=== PATIENT | female | born 1940 | race Caucasian/White ===

== ENCOUNTER 2017-11-01 08:19 | Day surgery (SDC) | payer MEDICARE, BC ==
[~2017-11-01] VITALS: Ht 157.5 cm; Wt 65.5 kg
[~2017-11-01 08:19] MED LIST: ASPI-1265 PO; CA C-1 PO; CHOL10002 PO; FURO20TA4 PO; LACT10SO PO; LEVO125T8 PO; MULT-955 PO; OMEP40CA37 PO; RIFA550T PO; SPIR25TA3 PO; URSO300C2 PO; ZIN220C; iron PO
[2017-11-01 08:42] VITALS: BP 121/64
[2017-11-01 09:00] VITALS: BP 111/54
[2017-11-01 09:15] VITALS: BP 115/52
[2017-11-01 09:25] VITALS: BP 114/62
== END 2017-11-01 09:32 | disposition home or self-care (01) ==
LOC: SSTAY O 08:19
PROVIDERS: ATTEND Radiology Diagnostic Radiology
DX: J90 Pleural effusion, not elsewhere classified (principal); I25.10 Atherosclerotic heart disease of native coronary artery without angina pectoris; I50.9 Heart failure, unspecified; I73.00 Raynaud's syndrome without gangrene; M19.90 Unspecified osteoarthritis, unspecified site; E03.9 Hypothyroidism, unspecified; I34.0 Nonrheumatic mitral (valve) insufficiency; Z79.82 Long term (current) use of aspirin; I13.0 Hypertensive heart and chronic kidney disease with heart failure and stage 1 through stage 4 chronic kidney disease, or unspecified chronic kidney disease; N18.9 Chronic kidney disease, unspecified; K21.9 Gastro-esophageal reflux disease without esophagitis; Z87.01 Personal history of pneumonia (recurrent); Z90.49 Acquired absence of other specified parts of digestive tract; Z99.81 Dependence on supplemental oxygen; Z85.828 Personal history of other malignant neoplasm of skin
CPT/HCPCS: 32555; 71045

== ENCOUNTER 2017-11-30 10:52 | Inpatient (IN) | payer MEDICARE, BC ==
[~2017-11-30] VITALS: Ht 157.5 cm; Wt 72.5 kg
[2017-11-30 12:18] LABS: BASOPHILS % (AUTO) 0.3 % (0-1); EOSINOPHILS # (AUTO) 0.3 X10'3 (0-0.9); EOSINOPHILS % (AUTO) 4.4 % (0-6); HEMATOCRIT 33.7 % (35.0-45.0); HEMOGLOBIN 11.5 g/dl (12.0-16.0); LYMPHOCYTES # (AUTO) 0.9 X10'3 (1.1-4.8); LYMPHOCYTES % (AUTO) 13.9 % (21-51); MEAN CORPUSCULAR HGB CONC 34.3 % (33.0-36.5); MEAN CORPUSCULAR VOLUME 96.4 FL (78-98); MEAN PLATELET VOLUME 6.4 FL (7.4-10.4); MONOCYTES # (AUTO) 0.8 X10'3 (0-0.9); MONOCYTES % (AUTO) 11.8 % (2-12); NEUTROPHILS # (AUTO) 4.6 X10'3 (1.8-7.7); NEUTROPHILS % (AUTO) 69.6 % (42-75); PLATELET COUNT 147 X10'3 (140-440); RED BLOOD COUNT 3.49 X10'6 (4.20-5.60); RED CELL DISTRIBUTION WIDTH 19.4 % (11.5-14.5); WHITE BLOOD COUNT 6.6 X10'3 (4.5-11.0)
[2017-11-30] MEDS ORDERED: furosemide 40mg/4ml inj IV ONE (12:25)
[2017-11-30 12:28] LABS: INR 1.2 INR; PARTIAL THROMBOPLASTIN TIME 31 SECONDS (22-32); PROTHROMBIN TIME 12.2 SECONDS (9.0-12.0)
[2017-11-30 12:45] LABS: ALANINE AMINOTRANSFERASE 21 U/L (12-78); ALBUMIN 1.3 G/DL (3.4-5.0); ALBUMIN/GLOBULIN RATIO 0.3 (1.1-1.5); ANION GAP 6 (8-16); ASPARTATE AMINO TRANSFERASE 39 U/L (10-37); BILIRUBIN,TOTAL 2.7 MG/DL (0.1-1.0); BLOOD UREA NITROGEN 11 MG/DL (7-18); BUN/CREATININE RATIO 13.6 (6.6-38.0); CALCIUM 8.1 MG/DL (8.5-10.1); CHLORIDE 103 MMOL/L (99-107); CREATININE 0.81 MG/DL (0.40-0.90); POTASSIUM 3.9 MMOL/L (3.5-5.1); SODIUM 138 MMOL/L (135-145); TOTAL CARBON DIOXIDE 29.5 MMOL/L (24-32); TOTAL PROTEIN 5.4 G/DL (6.4-8.2); eGFR 68 ML/MIN
[2017-11-30 12:46] LABS: ALKALINE PHOSPHATASE 138 IU/L (46-116)
[2017-11-30 12:47] LABS: GLUCOSE 94 MG/DL (70-104)
[2017-11-30 12:53] LABS: MAGNESIUM 1.8 MG/DL (1.5-2.4)
[2017-11-30] MEDS ORDERED: RIFA550T PO (15:02)
[2017-11-30] MEDS ORDERED: OMEP40CA37 PO (15:02)
[2017-11-30] MEDS ORDERED: FURO-150 PO (15:02)
[2017-11-30] MEDS ORDERED: URSO300C2 PO (15:02)
[2017-11-30] MEDS ORDERED: potassium Cl 20 mEq SR tablet PO PRN (15:20)
[2017-11-30] MEDS ORDERED: magnesium hydroxide 30ml (MOM) UD suspension PO PRN (15:20)
[2017-11-30] MEDS ORDERED: magnesium Cl slow-release 64mg tablet PO PRN (15:20)
[2017-11-30] MEDS ORDERED: mag hydrox/Alum hydrox/simeth 30ml oral suspension PO PRN (15:20)
[2017-11-30] MEDS ORDERED: potassium Cl 40MEQ/NS 500ml 500 ML IV PRN ×2 (15:20)
[2017-11-30] MEDS ORDERED: magnesium 2GM in 50ml NS 50 ML IV PRN (15:20)
[2017-11-30] MEDS ORDERED: magnesium 4gm in 100ml NS 100 ML IV PRN (15:20)
[2017-11-30] MEDS ORDERED: acetaminophen 325mg tablet PO PRN (15:20)
[2017-11-30] MEDS ORDERED: ondansetron/PF 4mg/2ml inj IV PRN ×2 (15:20)
[2017-11-30] MEDS ORDERED: non-formulary drug (Omeprazole (Prilosec) 1 CAP) PO PRN (15:30)
[2017-11-30 18:00] VITALS: BP 109/53
[2017-11-30] MEDS ORDERED: furosemide 10 MG/1 ML 10ml inj IV ONE (20:00)
[2017-11-30] MEDS ORDERED: lactulose 20gm/30ml cup PO ONE (20:00)
[2017-11-30] MEDS: heparin, porcine 5000 units/ml vial SQ SCH (20:17)
[2017-11-30 20:52] LABS: CLARITY,URINE CLEAR (Clear); COLOR,URINE YELLOW (Yellow); GLUCOSE, URINE NEGATIVE (Neg); KETONES,URINE NEGATIVE (Neg); LEUKOCYTE ESTERASE ,URINE NEGATIVE (Neg); NITRITES, URINE NEGATIVE (Neg); OCCULT BLOOD,URINE NEGATIVE (Neg); PH,URINE 5.5 (4.8-8.0); PROTEIN,URINE NEGATIVE (Neg); UA COLLECTION TYPE CLN CATCH MIDSTREAM; UROBILINOGEN,URINE 0.2 E.U/dL (0.2-1.0)
[2017-11-30] MEDS: Ursodiol 300mg capsule PO SCH (21:27)
[2017-11-30] MEDS: rifaximin 550mg tablet PO SCH (22:41)
[2017-12-01 00:52] VITALS: BP 121/53
[2017-12-01 05:19] LABS: BASOPHILS % (AUTO) 0.6 % (0-1); EOSINOPHILS # (AUTO) 0.3 X10'3 (0-0.9); EOSINOPHILS % (AUTO) 6.1 % (0-6); HEMATOCRIT 28.4 % (35.0-45.0); HEMOGLOBIN 9.9 g/dl (12.0-16.0); LYMPHOCYTES % (AUTO) 18.6 % (21-51); MEAN CORPUSCULAR HGB CONC 34.8 % (33.0-36.5); MEAN CORPUSCULAR VOLUME 94.8 FL (78-98); MEAN PLATELET VOLUME 6.2 FL (7.4-10.4); MONOCYTES # (AUTO) 0.7 X10'3 (0-0.9); MONOCYTES % (AUTO) 12.7 % (2-12); NEUTROPHILS # (AUTO) 3.2 X10'3 (1.8-7.7); PLATELET COUNT 135 X10'3 (140-440); RED BLOOD COUNT 2.99 X10'6 (4.20-5.60); RED CELL DISTRIBUTION WIDTH 18.8 % (11.5-14.5); WHITE BLOOD COUNT 5.2 X10'3 (4.5-11.0)
[2017-12-01 05:59] LABS: ALBUMIN 1.1 G/DL (3.4-5.0); ANION GAP 7 (8-16); BLOOD UREA NITROGEN 13 MG/DL (7-18); BUN/CREATININE RATIO 18.1 (6.6-38.0); CALCIUM 7.3 MG/DL (8.5-10.1); CHLORIDE 104 MMOL/L (99-107); CREATININE 0.72 MG/DL (0.40-0.90); GLUCOSE 76 MG/DL (70-104); MAGNESIUM 1.7 MG/DL (1.5-2.4); PHOSPHORUS 3.2 MG/DL (2.3-4.5); SODIUM 140 MMOL/L (135-145); TOTAL CARBON DIOXIDE 28.8 MMOL/L (24-32); eGFR 78 ML/MIN
[2017-12-01 06:06] LABS: POTASSIUM 2.7 MMOL/L (3.5-5.1)
[2017-12-01 07:33] VITALS: BP 95/50
[2017-12-01] MEDS ORDERED: non-formulary drug (Multivitamin (Daily Value) 1 TAB) PO SCH (08:00)
[2017-12-01] MEDS: K and/or MAG REPLACEMENT MC SCH (08:00)
[2017-12-01] MEDS ORDERED: non-formulary drug (Cholecalciferol (Vitamin D3) (Vitamin D3) 2 TAB) PO SCH (08:00)
[2017-12-01] MEDS: levoTHYROXINE 125mcg tablet PO SCH (10:04)
[2017-12-01] MEDS: pantoprazole 40mg Tablet.DR PO SCH (10:05)
[2017-12-01] MEDS: Ursodiol 300mg capsule PO SCH ×3 (10:05→17:44)
[2017-12-01] MEDS: rifaximin 550mg tablet PO SCH ×2 (10:06→20:32)
[2017-12-01] MEDS: spironolactone 25 MG tablet PO SCH (10:06)
[2017-12-01] MEDS: heparin, porcine 5000 units/ml vial SQ SCH ×2 (10:07→20:33)
[2017-12-01] MEDS: potassium Cl 20 mEq SR tablet PO PRN ×3 (10:08→20:33)
[2017-12-01] MEDS: multivitamins, therapeutics tablet PO SCH (10:17)
[2017-12-01] MEDS: vitamin D (cholecalciferol) 1,000 unit tablet PO SCH (10:17)
[2017-12-01 11:00] VITALS: BP 110/54
[2017-12-01 11:30] VITALS: BP 107/54
[2017-12-01 11:34] VITALS: BP 96/47
[2017-12-01 18:00] VITALS: BP 98/50
[2017-12-01] MEDS: lactulose 20gm/30ml cup PO SCH (20:32)
[2017-12-01] MEDS: morphine 2 MG/ML inj. syringe IV PRN (23:41)
[2017-12-02] VITALS: BP 123/59
[2017-12-02] MEDS: K and/or MAG REPLACEMENT MC SCH (08:00)
[2017-12-02 08:07] VITALS: BP 100/50
[2017-12-02 08:09] LABS: BASOPHILS % (AUTO) 0.6 % (0-1); EOSINOPHILS # (AUTO) 0.5 X10'3 (0-0.9); EOSINOPHILS % (AUTO) 8.1 % (0-6); HEMATOCRIT 31.8 % (35.0-45.0); HEMOGLOBIN 10.8 g/dl (12.0-16.0); LYMPHOCYTES # (AUTO) 1.6 X10'3 (1.1-4.8); LYMPHOCYTES % (AUTO) 25.1 % (21-51); MEAN CORPUSCULAR HGB CONC 34.1 % (33.0-36.5); MEAN CORPUSCULAR VOLUME 96.8 FL (78-98); MEAN PLATELET VOLUME 6.3 FL (7.4-10.4); MONOCYTES # (AUTO) 0.8 X10'3 (0-0.9); MONOCYTES % (AUTO) 13.5 % (2-12); NEUTROPHILS # (AUTO) 3.3 X10'3 (1.8-7.7); NEUTROPHILS % (AUTO) 52.7 % (42-75); PLATELET COUNT 144 X10'3 (140-440); RED BLOOD COUNT 3.29 X10'6 (4.20-5.60); RED CELL DISTRIBUTION WIDTH 18.7 % (11.5-14.5); WHITE BLOOD COUNT 6.2 X10'3 (4.5-11.0)
[2017-12-02 08:29] LABS: ALBUMIN 1.1 G/DL (3.4-5.0); ANION GAP 8 (8-16); BLOOD UREA NITROGEN 13 MG/DL (7-18); BUN/CREATININE RATIO 17.1 (6.6-38.0); CALCIUM 7.5 MG/DL (8.5-10.1); CHLORIDE 105 MMOL/L (99-107); CREATININE 0.76 MG/DL (0.40-0.90); GLUCOSE 72 MG/DL (70-104); MAGNESIUM 1.7 MG/DL (1.5-2.4); PHOSPHORUS 2.7 MG/DL (2.3-4.5); POTASSIUM 4.2 MMOL/L (3.5-5.1); SODIUM 138 MMOL/L (135-145); TOTAL CARBON DIOXIDE 25.5 MMOL/L (24-32); eGFR 74 ML/MIN
[2017-12-02] MEDS: levoTHYROXINE 125mcg tablet PO SCH (10:00)
[2017-12-02] MEDS: Ursodiol 300mg capsule PO SCH ×3 (10:00→18:34)
[2017-12-02] MEDS: pantoprazole 40mg Tablet.DR PO SCH (10:00)
[2017-12-02] MEDS: spironolactone 25 MG tablet PO SCH (10:01)
[2017-12-02] MEDS: lactulose 20gm/30ml cup PO SCH ×2 (10:01→19:18)
[2017-12-02] MEDS: rifaximin 550mg tablet PO SCH ×2 (10:02→19:18)
[2017-12-02] MEDS: heparin, porcine 5000 units/ml vial SQ SCH ×2 (10:03→19:18)
[2017-12-02] MEDS: multivitamins, therapeutics tablet PO SCH (10:03)
[2017-12-02] MEDS: vitamin D (cholecalciferol) 1,000 unit tablet PO SCH (10:04)
[2017-12-02 11:25] VITALS: BP 105/50
[2017-12-02 18:00] VITALS: BP 98/49
[2017-12-03] VITALS: BP 110/2
[2017-12-03 05:19] LABS: BASOPHILS # (AUTO) 0.1 X10'3 (0-0.2); BASOPHILS % (AUTO) 1.2 % (0-1); EOSINOPHILS # (AUTO) 0.5 X10'3 (0-0.9); EOSINOPHILS % (AUTO) 9.6 % (0-6); HEMATOCRIT 28.7 % (35.0-45.0); LYMPHOCYTES # (AUTO) 1.3 X10'3 (1.1-4.8); LYMPHOCYTES % (AUTO) 24.7 % (21-51); MEAN CORPUSCULAR HEMOGLOBIN 33.2 PG (27.0-31.0); MEAN CORPUSCULAR HGB CONC 34.8 % (33.0-36.5); MEAN CORPUSCULAR VOLUME 95.4 FL (78-98); MEAN PLATELET VOLUME 6.2 FL (7.4-10.4); MONOCYTES # (AUTO) 0.8 X10'3 (0-0.9); MONOCYTES % (AUTO) 14.9 % (2-12); NEUTROPHILS # (AUTO) 2.5 X10'3 (1.8-7.7); NEUTROPHILS % (AUTO) 49.6 % (42-75); PLATELET COUNT 130 X10'3 (140-440); RED BLOOD COUNT 3.01 X10'6 (4.20-5.60); RED CELL DISTRIBUTION WIDTH 19.2 % (11.5-14.5); WHITE BLOOD COUNT 5.1 X10'3 (4.5-11.0)
[2017-12-03 05:33] LABS: ALBUMIN 1.1 G/DL (3.4-5.0); ANION GAP 4 (8-16); BLOOD UREA NITROGEN 12 MG/DL (7-18); BUN/CREATININE RATIO 17.1 (6.6-38.0); CALCIUM 7.6 MG/DL (8.5-10.1); CHLORIDE 105 MMOL/L (99-107); GLUCOSE 78 MG/DL (70-104); MAGNESIUM 1.7 MG/DL (1.5-2.4); PHOSPHORUS 3.1 MG/DL (2.3-4.5); POTASSIUM 4.1 MMOL/L (3.5-5.1); SODIUM 137 MMOL/L (135-145); TOTAL CARBON DIOXIDE 28.2 MMOL/L (24-32); eGFR 81 ML/MIN
[2017-12-03] MEDS: K and/or MAG REPLACEMENT MC SCH (07:13)
[2017-12-03] MEDS: levoTHYROXINE 125mcg tablet PO SCH (07:20)
[2017-12-03] MEDS: pantoprazole 40mg Tablet.DR PO SCH (07:20)
[2017-12-03] MEDS: heparin, porcine 5000 units/ml vial SQ SCH ×2 (07:20→20:21)
[2017-12-03] MEDS: vitamin D (cholecalciferol) 1,000 unit tablet PO SCH (07:20)
[2017-12-03] MEDS: lactulose 20gm/30ml cup PO SCH ×2 (07:20→20:18)
[2017-12-03] MEDS: levoFLOXACIN-Levaquin 750MG/D5 150 ML IV SCH (07:20)
[2017-12-03] MEDS: spironolactone 25 MG tablet PO SCH ×2 (07:21→20:19)
[2017-12-03] MEDS: multivitamins, therapeutics tablet PO SCH (07:21)
[2017-12-03] MEDS: Ursodiol 300mg capsule PO SCH ×3 (07:22→17:09)
[2017-12-03] MEDS: rifaximin 550mg tablet PO SCH ×2 (07:22→20:19)
[2017-12-03 08:00] VITALS: BP 100/48
[2017-12-03 11:00] VITALS: BP 97/50
[2017-12-03] MEDS ORDERED: spironolactone 25 MG tablet PO ONE (12:15)
[2017-12-03] MEDS ORDERED: lactobacillus rhamnosus 10,000 MMU CELLS/CAPSULE PO SCH (17:30)
[2017-12-03 20:00] VITALS: BP 104/51
[2017-12-03] MEDS: morphine 2 MG/ML inj. syringe IV PRN (20:27)
[2017-12-04] VITALS: BP 104/57
[2017-12-04 06:13] LABS: BASOPHILS % (AUTO) 0.7 % (0-1); EOSINOPHILS # (AUTO) 0.4 X10'3 (0-0.9); EOSINOPHILS % (AUTO) 7.7 % (0-6); HEMATOCRIT 29.4 % (35.0-45.0); HEMOGLOBIN 10.1 g/dl (12.0-16.0); LYMPHOCYTES # (AUTO) 1.4 X10'3 (1.1-4.8); LYMPHOCYTES % (AUTO) 24.1 % (21-51); MEAN CORPUSCULAR HEMOGLOBIN 32.7 PG (27.0-31.0); MEAN CORPUSCULAR HGB CONC 34.4 % (33.0-36.5); MEAN CORPUSCULAR VOLUME 95.3 FL (78-98); MEAN PLATELET VOLUME 6.4 FL (7.4-10.4); MONOCYTES # (AUTO) 0.9 X10'3 (0-0.9); MONOCYTES % (AUTO) 16.1 % (2-12); NEUTROPHILS # (AUTO) 2.9 X10'3 (1.8-7.7); NEUTROPHILS % (AUTO) 51.4 % (42-75); PLATELET COUNT 138 X10'3 (140-440); RED BLOOD COUNT 3.09 X10'6 (4.20-5.60); RED CELL DISTRIBUTION WIDTH 18.4 % (11.5-14.5); WHITE BLOOD COUNT 5.6 X10'3 (4.5-11.0)
[2017-12-04 06:17] LABS: INR 1.2 INR; PROTHROMBIN TIME 12.8 SECONDS (9.0-12.0)
[2017-12-04 06:30] LABS: ALANINE AMINOTRANSFERASE 12 U/L (12-78); ALBUMIN 1.1 G/DL (3.4-5.0); ALBUMIN/GLOBULIN RATIO 0.3 (1.1-1.5); ALKALINE PHOSPHATASE 115 IU/L (46-116); ANION GAP 4 (8-16); ASPARTATE AMINO TRANSFERASE 38 U/L (10-37); BILIRUBIN,DIRECT 1.2 MG/DL (0-0.3); BILIRUBIN,TOTAL 2.1 MG/DL (0.1-1.0); BLOOD UREA NITROGEN 12 MG/DL (7-18); BUN/CREATININE RATIO 14.5 (6.6-38.0); CHLORIDE 106 MMOL/L (99-107); CREATININE 0.83 MG/DL (0.40-0.90); GLUCOSE 69 MG/DL (70-104); MAGNESIUM 1.7 MG/DL (1.5-2.4); POTASSIUM 4.3 MMOL/L (3.5-5.1); SODIUM 140 MMOL/L (135-145); TOTAL CARBON DIOXIDE 29.8 MMOL/L (24-32); TOTAL PROTEIN 4.7 G/DL (6.4-8.2); eGFR 66 ML/MIN
[2017-12-04 07:00] VITALS: BP 102/48
[2017-12-04] MEDS: K and/or MAG REPLACEMENT MC SCH (08:00)
[2017-12-04] MEDS: rifaximin 550mg tablet PO SCH ×2 (09:01→19:42)
[2017-12-04] MEDS: Ursodiol 300mg capsule PO SCH ×3 (09:02→19:42)
[2017-12-04] MEDS: multivitamins, therapeutics tablet PO SCH (09:02)
[2017-12-04] MEDS: levoFLOXACIN-Levaquin 750MG/D5 150 ML IV SCH (09:02)
[2017-12-04] MEDS: vitamin D (cholecalciferol) 1,000 unit tablet PO SCH (09:03)
[2017-12-04] MEDS: spironolactone 25 MG tablet PO SCH ×2 (09:03→19:42)
[2017-12-04] MEDS: lactulose 20gm/30ml cup PO SCH ×2 (09:04→19:43)
[2017-12-04] MEDS: heparin, porcine 5000 units/ml vial SQ SCH ×2 (09:05→19:46)
[2017-12-04] MEDS: levoTHYROXINE 125mcg tablet PO SCH (09:12)
[2017-12-04] MEDS: pantoprazole 40mg Tablet.DR PO SCH (09:12)
[2017-12-04 11:10] VITALS: BP 100/52
[2017-12-04] MEDS: lactobacillus rhamnosus 10,000 MMU CELLS/CAPSULE PO SCH (19:42)
[2017-12-04 20:00] VITALS: BP 113/52
[2017-12-05] VITALS: BP 112/53
[2017-12-05 06:07] LABS: BASOPHILS % (AUTO) 0.4 % (0-1); EOSINOPHILS # (AUTO) 0.4 X10'3 (0-0.9); EOSINOPHILS % (AUTO) 7.2 % (0-6); HEMATOCRIT 29.1 % (35.0-45.0); LYMPHOCYTES # (AUTO) 1.2 X10'3 (1.1-4.8); LYMPHOCYTES % (AUTO) 23.9 % (21-51); MEAN CORPUSCULAR HEMOGLOBIN 32.7 PG (27.0-31.0); MEAN CORPUSCULAR HGB CONC 34.2 % (33.0-36.5); MEAN CORPUSCULAR VOLUME 95.6 FL (78-98); MEAN PLATELET VOLUME 6.5 FL (7.4-10.4); MONOCYTES # (AUTO) 0.7 X10'3 (0-0.9); MONOCYTES % (AUTO) 13.7 % (2-12); NEUTROPHILS # (AUTO) 2.7 X10'3 (1.8-7.7); NEUTROPHILS % (AUTO) 54.8 % (42-75); PLATELET COUNT 124 X10'3 (140-440); RED BLOOD COUNT 3.05 X10'6 (4.20-5.60); RED CELL DISTRIBUTION WIDTH 17.7 % (11.5-14.5); WHITE BLOOD COUNT 4.9 X10'3 (4.5-11.0)
[2017-12-05 06:31] LABS: ALBUMIN 1.1 G/DL (3.4-5.0); ANION GAP 5 (8-16); BLOOD UREA NITROGEN 11 MG/DL (7-18); BUN/CREATININE RATIO 14.3 (6.6-38.0); CALCIUM 7.8 MG/DL (8.5-10.1); CHLORIDE 104 MMOL/L (99-107); CREATININE 0.77 MG/DL (0.40-0.90); GLUCOSE 78 MG/DL (70-104); MAGNESIUM 1.7 MG/DL (1.5-2.4); PHOSPHORUS 3.1 MG/DL (2.3-4.5); POTASSIUM 3.7 MMOL/L (3.5-5.1); SODIUM 137 MMOL/L (135-145); TOTAL CARBON DIOXIDE 28.3 MMOL/L (24-32); eGFR 73 ML/MIN
[2017-12-05] MEDS: K and/or MAG REPLACEMENT MC SCH (08:13)
[2017-12-05] MEDS: vitamin D (cholecalciferol) 1,000 unit tablet PO SCH (08:25)
[2017-12-05] MEDS: spironolactone 25 MG tablet PO SCH (08:25)
[2017-12-05] MEDS: lactobacillus rhamnosus 10,000 MMU CELLS/CAPSULE PO SCH (08:26)
[2017-12-05] MEDS: multivitamins, therapeutics tablet PO SCH (08:26)
[2017-12-05] MEDS: rifaximin 550mg tablet PO SCH (08:26)
[2017-12-05] MEDS: levoTHYROXINE 125mcg tablet PO SCH (08:27)
[2017-12-05] MEDS: pantoprazole 40mg Tablet.DR PO SCH (08:27)
[2017-12-05] MEDS: Ursodiol 300mg capsule PO SCH (08:27)
[2017-12-05] MEDS: heparin, porcine 5000 units/ml vial SQ SCH (08:28)
[2017-12-05] MEDS: lactulose 20gm/30ml cup PO SCH (08:28)
[2017-12-05 08:50] VITALS: BP 102/49
[2017-12-05] MEDS ORDERED: levoFLOXACIN 750MG TABLET PO SCH (11:00)
== END 2017-12-05 11:30 | DRG 441 ==
LOC: ER 10:53 → ED HOLD 15:18 → SUR 3N 18:23
PROVIDERS: ADMIT Internal Medicine Nephrology; ATTEND Internal Medicine
PROC: 0W993ZZ Drainage of Right Pleural Cavity, Percutaneous Approach (ICD-10-PCS; principal; 2017-12-01)
DX: K72.90 Hepatic failure, unspecified without coma (principal); J96.01 Acute respiratory failure with hypoxia; E43 Unspecified severe protein-calorie malnutrition; I11.0 Hypertensive heart disease with heart failure; K76.6 Portal hypertension; M34.9 Systemic sclerosis, unspecified; J90 Pleural effusion, not elsewhere classified; I50.9 Heart failure, unspecified; M48.54XA Collapsed vertebra, not elsewhere classified, thoracic region, initial encounter for fracture; J98.11 Atelectasis; M10.9 Gout, unspecified; R33.9 Retention of urine, unspecified; N28.9 Disorder of kidney and ureter, unspecified; K74.60 Unspecified cirrhosis of liver; E03.9 Hypothyroidism, unspecified; Z90.49 Acquired absence of other specified parts of digestive tract; Z90.710 Acquired absence of both cervix and uterus; Z79.82 Long term (current) use of aspirin; Z79.899 Other long term (current) drug therapy; Z91.81 History of falling; Z80.41 Family history of malignant neoplasm of ovary; Z80.6 Family history of leukemia; Z82.49 Family history of ischemic heart disease and other diseases of the circulatory system; Z83.3 Family history of diabetes mellitus; Z68.29 Body mass index [BMI] 29.0-29.9, adult
CPT/HCPCS: 32555; 36415; 71045; 71250; 76700; 80048; 80053; 80076; 81003; 82140; 83735; 83880; 84100; 84484; 85025; 85610; 85730; 87070; 93005; 93306; 93975; 96374; 97116; 97161; 97530; 99285; A4315; J1644; J1940; J1956; J2270; J7030

== ENCOUNTER 2017-12-21 11:32 | Inpatient (IN) | payer MEDICARE, BC ==
[~2017-12-21] VITALS: Ht 157.5 cm; Wt 85.0 kg
[~2017-12-21 11:32] MED LIST changes: -ASPI-1265 PO; -CA C-1 PO; +FURO-150 PO; -FURO20TA4 PO; -ZIN220C
[2017-12-21 12:12] LABS: BASOPHILS % (AUTO) 0.2 % (0-1); EOSINOPHILS # (AUTO) 0.3 X10'3 (0-0.9); EOSINOPHILS % (AUTO) 4.5 % (0-6); HEMOGLOBIN 9.8 g/dl (12.0-16.0); LYMPHOCYTES # (AUTO) 1.2 X10'3 (1.1-4.8); LYMPHOCYTES % (AUTO) 18.6 % (21-51); MEAN CORPUSCULAR HEMOGLOBIN 33.3 PG (27.0-31.0); MEAN CORPUSCULAR HGB CONC 35.1 % (33.0-36.5); MEAN CORPUSCULAR VOLUME 94.7 FL (78-98); MEAN PLATELET VOLUME 6.2 FL (7.4-10.4); NEUTROPHILS # (AUTO) 3.8 X10'3 (1.8-7.7); NEUTROPHILS % (AUTO) 60.7 % (42-75); PLATELET COUNT 185 X10'3 (140-440); RED BLOOD COUNT 2.95 X10'6 (4.20-5.60); RED CELL DISTRIBUTION WIDTH 16.5 % (11.5-14.5); WHITE BLOOD COUNT 6.2 X10'3 (4.5-11.0)
[2017-12-21 12:21] LABS: INR 1.1 INR; PARTIAL THROMBOPLASTIN TIME 31 SECONDS (22-32); PROTHROMBIN TIME 11.4 SECONDS (9.0-12.0)
[2017-12-21 12:26] LABS: ALANINE AMINOTRANSFERASE 19 U/L (12-78); ALBUMIN 2.4 G/DL (3.4-5.0); ALBUMIN/GLOBULIN RATIO 0.6 (1.1-1.5); ALKALINE PHOSPHATASE 78 IU/L (46-116); ANION GAP 4 (8-16); ASPARTATE AMINO TRANSFERASE 30 U/L (10-37); BLOOD UREA NITROGEN 39 MG/DL (7-18); BUN/CREATININE RATIO 44.8 (6.6-38.0); CALCIUM 8.7 MG/DL (8.5-10.1); CHLORIDE 98 MMOL/L (99-107); CREATININE 0.87 MG/DL (0.40-0.90); GLUCOSE 90 MG/DL (70-104); POTASSIUM 4.2 MMOL/L (3.5-5.1); SODIUM 137 MMOL/L (135-145); TOTAL CARBON DIOXIDE 35.4 MMOL/L (24-32); TOTAL PROTEIN 6.2 G/DL (6.4-8.2); eGFR 63 ML/MIN
[2017-12-21 12:48] LABS: CLARITY,URINE CLEAR (Clear); COLOR,URINE YELLOW (Yellow); GLUCOSE, URINE NEGATIVE (Neg); KETONES,URINE NEGATIVE (Neg); LEUKOCYTE ESTERASE ,URINE NEGATIVE (Neg); NITRITES, URINE NEGATIVE (Neg); OCCULT BLOOD,URINE MODERATE (Neg); PROTEIN,URINE NEGATIVE (Neg); UROBILINOGEN,URINE 0.2 E.U/dL (0.2-1.0)
[2017-12-21 12:56] LABS: UA COLLECTION TYPE FOLEY CATH
[2017-12-21 12:57] LABS: BACTERIA,URINE NONE SEEN /HPF (Neg); WBC,URINE NONE SEEN /HPF (0-4)
[2017-12-21 12:58] LABS: MUCUS STRANDS NONE SEEN /LPF (Neg); SQUAMOUS EPITHELIAL CELL,UR NONE SEEN /LPF (FEW); YEAST MANY /HPF (NEGATIVE)
[2017-12-21] MEDS ORDERED: furosemide 40mg/4ml inj IV ONE (13:10)
[2017-12-21 13:11] LABS: LACTIC SEPSIS 1.5 MMOL/L (0.4-2.0)
[2017-12-21] MEDS ORDERED: magnesium hydroxide 30ml (MOM) UD suspension PO PRN (16:50)
[2017-12-21] MEDS ORDERED: mag hydrox/Alum hydrox/simeth 30ml oral suspension PO PRN (16:50)
[2017-12-21] MEDS ORDERED: ondansetron/PF 4mg/2ml inj IV PRN (16:50)
[2017-12-21] MEDS ORDERED: FERR325T32 PO (18:19)
[2017-12-21] MEDS: furosemide 10 MG/1 ML 10ml inj IV SCH (20:10)
[2017-12-21] MEDS: lactulose 20gm/30ml cup PO SCH (20:12)
[2017-12-22 05:57] LABS: BASOPHILS % (AUTO) 0.3 % (0-1); EOSINOPHILS # (AUTO) 0.2 X10'3 (0-0.9); EOSINOPHILS % (AUTO) 3.2 % (0-6); HEMATOCRIT 25.2 % (35.0-45.0); HEMOGLOBIN 8.9 g/dl (12.0-16.0); LYMPHOCYTES # (AUTO) 0.7 X10'3 (1.1-4.8); LYMPHOCYTES % (AUTO) 11.1 % (21-51); MEAN CORPUSCULAR HEMOGLOBIN 33.6 PG (27.0-31.0); MEAN CORPUSCULAR HGB CONC 35.4 % (33.0-36.5); MEAN CORPUSCULAR VOLUME 94.9 FL (78-98); MEAN PLATELET VOLUME 6.2 FL (7.4-10.4); MONOCYTES # (AUTO) 0.8 X10'3 (0-0.9); MONOCYTES % (AUTO) 14.2 % (2-12); NEUTROPHILS # (AUTO) 4.2 X10'3 (1.8-7.7); NEUTROPHILS % (AUTO) 71.2 % (42-75); PLATELET COUNT 184 X10'3 (140-440); RED BLOOD COUNT 2.66 X10'6 (4.20-5.60); RED CELL DISTRIBUTION WIDTH 17.2 % (11.5-14.5); WHITE BLOOD COUNT 5.9 X10'3 (4.5-11.0)
[2017-12-22 06:12] LABS: INR 1.1 INR; PROTHROMBIN TIME 11.7 SECONDS (9.0-12.0)
[2017-12-22 06:28] LABS: ALANINE AMINOTRANSFERASE 21 U/L (12-78); ALBUMIN/GLOBULIN RATIO 0.6 (1.1-1.5); ALKALINE PHOSPHATASE 77 IU/L (46-116); ANION GAP 4 (8-16); ASPARTATE AMINO TRANSFERASE 27 U/L (10-37); BLOOD UREA NITROGEN 40 MG/DL (7-18); BUN/CREATININE RATIO 44.9 (6.6-38.0); CALCIUM 8.5 MG/DL (8.5-10.1); CHLORIDE 101 MMOL/L (99-107); CREATININE 0.89 MG/DL (0.40-0.90); GLUCOSE 115 MG/DL (70-104); POTASSIUM 3.8 MMOL/L (3.5-5.1); SODIUM 139 MMOL/L (135-145); TOTAL CARBON DIOXIDE 34.3 MMOL/L (24-32); TOTAL PROTEIN 5.3 G/DL (6.4-8.2); eGFR 61 ML/MIN
[2017-12-22 07:00] VITALS: BP 119/53
[2017-12-22] MEDS: lactulose 20gm/30ml cup PO SCH ×2 (08:13→20:03)
[2017-12-22] MEDS: furosemide 10 MG/1 ML 10ml inj IV SCH ×2 (08:13→20:06)
[2017-12-22 11:00] VITALS: BP 118/50
[2017-12-22] MEDS ORDERED: magnesium 4gm in 100ml NS 100 ML IV PRN (11:25)
[2017-12-22] MEDS ORDERED: potassium Cl 20 mEq SR tablet PO PRN (11:25)
[2017-12-22] MEDS ORDERED: magnesium 2GM in 50ml NS 50 ML IV PRN (11:25)
[2017-12-22] MEDS ORDERED: magnesium Cl slow-release 64mg tablet PO PRN (11:25)
[2017-12-22] MEDS ORDERED: potassium Cl 40MEQ/NS 500ml 500 ML IV PRN ×2 (11:25)
[2017-12-22] MEDS: K and/or MAG REPLACEMENT MC SCH (11:25)
[2017-12-22] MEDS: LACTOSE-FREE FOOD 237ML (BOOST) PO SCH ×2 (13:00→18:36)
[2017-12-22] MEDS: Ursodiol 300mg capsule PO SCH ×2 (13:41→18:35)
[2017-12-22 15:00] VITALS: BP 106/44
[2017-12-22 19:00] VITALS: BP 109/43
[2017-12-22] MEDS: rifaximin 550mg tablet PO SCH (20:03)
[2017-12-22 23:00] VITALS: BP 129/55
[2017-12-23 03:00] VITALS: BP 118/50
[2017-12-23 07:00] VITALS: BP 122/51
[2017-12-23] MEDS: furosemide 10 MG/1 ML 10ml inj IV SCH ×2 (07:19→20:31)
[2017-12-23] MEDS: spironolactone 25 MG tablet PO SCH (07:20)
[2017-12-23] MEDS: rifaximin 550mg tablet PO SCH ×2 (07:20→20:30)
[2017-12-23] MEDS: lactulose 20gm/30ml cup PO SCH ×2 (07:20→20:31)
[2017-12-23] MEDS: levoTHYROXINE 75mcg tablet PO SCH (07:20)
[2017-12-23] MEDS: Ursodiol 300mg capsule PO SCH ×3 (07:20→20:29)
[2017-12-23] MEDS: LACTOSE-FREE FOOD 237ML (BOOST) PO SCH ×3 (07:32→20:42)
[2017-12-23] MEDS: K and/or MAG REPLACEMENT MC SCH (08:00)
[2017-12-23 11:00] VITALS: BP 115/68
[2017-12-23 15:00] VITALS: BP 107/44
[2017-12-23 19:00] VITALS: BP 116/50
[2017-12-23] MEDS: lactobacillus rhamnosus 10,000 MMU CELLS/CAPSULE PO SCH (20:32)
[2017-12-23 23:00] VITALS: BP 125/56
[2017-12-24 03:00] VITALS: BP 109/46
[2017-12-24 03:15] LABS: BASOPHILS % (AUTO) 0.3 % (0-1); EOSINOPHILS # (AUTO) 0.4 X10'3 (0-0.9); EOSINOPHILS % (AUTO) 5.8 % (0-6); HEMATOCRIT 25.6 % (35.0-45.0); HEMOGLOBIN 8.8 g/dl (12.0-16.0); LYMPHOCYTES # (AUTO) 1.3 X10'3 (1.1-4.8); LYMPHOCYTES % (AUTO) 20.7 % (21-51); MEAN CORPUSCULAR HEMOGLOBIN 32.9 PG (27.0-31.0); MEAN CORPUSCULAR HGB CONC 34.5 % (33.0-36.5); MEAN CORPUSCULAR VOLUME 95.3 FL (78-98); MEAN PLATELET VOLUME 6.3 FL (7.4-10.4); MONOCYTES % (AUTO) 15.1 % (2-12); NEUTROPHILS # (AUTO) 3.8 X10'3 (1.8-7.7); NEUTROPHILS % (AUTO) 58.1 % (42-75); PLATELET COUNT 177 X10'3 (140-440); RED BLOOD COUNT 2.68 X10'6 (4.20-5.60); RED CELL DISTRIBUTION WIDTH 17.2 % (11.5-14.5); WHITE BLOOD COUNT 6.5 X10'3 (4.5-11.0)
[2017-12-24 03:16] LABS: ALBUMIN 1.8 G/DL (3.4-5.0); ANION GAP 5 (8-16); BLOOD UREA NITROGEN 26 MG/DL (7-18); BUN/CREATININE RATIO 27.4 (6.6-38.0); CALCIUM 8.1 MG/DL (8.5-10.1); CHLORIDE 101 MMOL/L (99-107); CREATININE 0.95 MG/DL (0.40-0.90); GLUCOSE 89 MG/DL (70-104); SODIUM 141 MMOL/L (135-145); TOTAL CARBON DIOXIDE 35.2 MMOL/L (24-32); eGFR 57 ML/MIN
[2017-12-24 03:23] LABS: POTASSIUM 2.9 MMOL/L (3.5-5.1)
[2017-12-24] MEDS: potassium Cl 20 mEq SR tablet PO PRN ×3 (03:37→14:13)
[2017-12-24 07:00] VITALS: BP 103/47
[2017-12-24] MEDS: rifaximin 550mg tablet PO SCH ×2 (07:18→19:31)
[2017-12-24] MEDS: spironolactone 25 MG tablet PO SCH (07:18)
[2017-12-24] MEDS: lactulose 20gm/30ml cup PO SCH ×3 (07:18→21:00)
[2017-12-24] MEDS: Ursodiol 300mg capsule PO SCH ×3 (07:18→19:31)
[2017-12-24] MEDS: lactobacillus rhamnosus 10,000 MMU CELLS/CAPSULE PO SCH ×2 (07:18→19:31)
[2017-12-24] MEDS: furosemide 10 MG/1 ML 10ml inj IV SCH (07:18)
[2017-12-24] MEDS: levoTHYROXINE 75mcg tablet PO SCH (07:19)
[2017-12-24] MEDS: LACTOSE-FREE FOOD 237ML (BOOST) PO SCH ×4 (08:00→18:00)
[2017-12-24] MEDS: K and/or MAG REPLACEMENT MC SCH (08:00)
[2017-12-24 11:00] VITALS: BP 108/47
[2017-12-24 15:00] VITALS: BP 102/70
[2017-12-24 19:00] VITALS: BP 104/47
[2017-12-24 23:00] VITALS: BP 114/56
[2017-12-25 02:50] LABS: HEMATOCRIT 25.8 % (35.0-45.0); HEMOGLOBIN 8.9 g/dl (12.0-16.0); MEAN CORPUSCULAR HEMOGLOBIN 33.2 PG (27.0-31.0); MEAN CORPUSCULAR HGB CONC 34.5 % (33.0-36.5); MEAN CORPUSCULAR VOLUME 96.3 FL (78-98); MEAN PLATELET VOLUME 6.4 FL (7.4-10.4); PLATELET COUNT 186 X10'3 (140-440); RED BLOOD COUNT 2.68 X10'6 (4.20-5.60); RED CELL DISTRIBUTION WIDTH 17.7 % (11.5-14.5); WHITE BLOOD COUNT 7.4 X10'3 (4.5-11.0)
[2017-12-25 03:00] VITALS: BP 113/59
[2017-12-25 03:00] LABS: ALBUMIN 1.9 G/DL (3.4-5.0); ANION GAP 4 (8-16); BLOOD UREA NITROGEN 22 MG/DL (7-18); BUN/CREATININE RATIO 28.9 (6.6-38.0); CALCIUM 8.2 MG/DL (8.5-10.1); CHLORIDE 104 MMOL/L (99-107); CREATININE 0.76 MG/DL (0.40-0.90); GLUCOSE 88 MG/DL (70-104); MAGNESIUM 1.9 MG/DL (1.5-2.4); POTASSIUM 3.8 MMOL/L (3.5-5.1); SODIUM 139 MMOL/L (135-145); TOTAL CARBON DIOXIDE 30.9 MMOL/L (24-32); eGFR 74 ML/MIN
[2017-12-25 06:00] VITALS: BP 106/50
[2017-12-25] MEDS: levoTHYROXINE 75mcg tablet PO SCH (07:53)
[2017-12-25] MEDS: spironolactone 25 MG tablet PO SCH (07:53)
[2017-12-25] MEDS: Ursodiol 300mg capsule PO SCH ×3 (07:53→19:03)
[2017-12-25] MEDS: lactulose 20gm/30ml cup PO SCH ×3 (07:53→20:32)
[2017-12-25] MEDS: lactobacillus rhamnosus 10,000 MMU CELLS/CAPSULE PO SCH ×2 (07:53→20:32)
[2017-12-25] MEDS: rifaximin 550mg tablet PO SCH ×2 (07:53→20:32)
[2017-12-25] MEDS: LACTOSE-FREE FOOD 237ML (BOOST) PO SCH ×5 (07:54→18:00)
[2017-12-25] MEDS: K and/or MAG REPLACEMENT MC SCH (08:00)
[2017-12-25] MEDS ORDERED: furosemide 10 MG/1 ML 10ml inj IV SCH (08:00)
[2017-12-25 11:00] VITALS: BP 117/50
[2017-12-25 15:00] VITALS: BP 111/48
[2017-12-25] MEDS ORDERED: potassium chloride 10mEq CAPSULE.SA PO SCH (15:40)
[2017-12-25] MEDS ORDERED: potassium Cl 20 mEq SR tablet PO ONE (16:25)
[2017-12-25 18:00] VITALS: BP 102/45
[2017-12-25 22:00] VITALS: BP 104/51
[2017-12-26 02:00] VITALS: BP 111/53
[2017-12-26 05:37] LABS: BASOPHILS % (AUTO) 0.5 % (0-1); EOSINOPHILS # (AUTO) 0.4 X10'3 (0-0.9); EOSINOPHILS % (AUTO) 6.1 % (0-6); HEMATOCRIT 25.1 % (35.0-45.0); HEMOGLOBIN 8.8 g/dl (12.0-16.0); LYMPHOCYTES # (AUTO) 1.2 X10'3 (1.1-4.8); LYMPHOCYTES % (AUTO) 16.1 % (21-51); MEAN CORPUSCULAR HEMOGLOBIN 33.8 PG (27.0-31.0); MEAN CORPUSCULAR HGB CONC 34.9 % (33.0-36.5); MEAN CORPUSCULAR VOLUME 96.7 FL (78-98); MEAN PLATELET VOLUME 6.7 FL (7.4-10.4); MONOCYTES # (AUTO) 0.9 X10'3 (0-0.9); MONOCYTES % (AUTO) 12.6 % (2-12); NEUTROPHILS # (AUTO) 4.6 X10'3 (1.8-7.7); NEUTROPHILS % (AUTO) 64.7 % (42-75); PLATELET COUNT 172 X10'3 (140-440); RED BLOOD COUNT 2.59 X10'6 (4.20-5.60); RED CELL DISTRIBUTION WIDTH 17.5 % (11.5-14.5); WHITE BLOOD COUNT 7.2 X10'3 (4.5-11.0)
[2017-12-26 06:00] VITALS: BP 104/51
[2017-12-26 06:04] LABS: ALANINE AMINOTRANSFERASE 18 U/L (12-78); ALBUMIN 1.9 G/DL (3.4-5.0); ALBUMIN/GLOBULIN RATIO 0.6 (1.1-1.5); ALKALINE PHOSPHATASE 82 IU/L (46-116); ANION GAP 7 (8-16); ASPARTATE AMINO TRANSFERASE 26 U/L (10-37); BILIRUBIN,TOTAL 2.1 MG/DL (0.1-1.0); BLOOD UREA NITROGEN 22 MG/DL (7-18); BUN/CREATININE RATIO 31.4 (6.6-38.0); CALCIUM 8.6 MG/DL (8.5-10.1); CHLORIDE 104 MMOL/L (99-107); GLUCOSE 88 MG/DL (70-104); POTASSIUM 3.8 MMOL/L (3.5-5.1); SODIUM 139 MMOL/L (135-145); TOTAL CARBON DIOXIDE 27.9 MMOL/L (24-32); TOTAL PROTEIN 5.3 G/DL (6.4-8.2); eGFR 81 ML/MIN
[2017-12-26] MEDS: levoTHYROXINE 75mcg tablet PO SCH (07:25)
[2017-12-26] MEDS: lactulose 20gm/30ml cup PO SCH ×3 (07:26→20:22)
[2017-12-26] MEDS: lactobacillus rhamnosus 10,000 MMU CELLS/CAPSULE PO SCH ×2 (07:26→20:22)
[2017-12-26] MEDS: spironolactone 25 MG tablet PO SCH (07:27)
[2017-12-26] MEDS: Ursodiol 300mg capsule PO SCH ×3 (07:27→20:21)
[2017-12-26] MEDS: rifaximin 550mg tablet PO SCH ×2 (07:27→20:22)
[2017-12-26] MEDS: LACTOSE-FREE FOOD 237ML (BOOST) PO SCH ×3 (08:00→18:00)
[2017-12-26] MEDS: furosemide 40mg tablet PO SCH (08:00)
[2017-12-26] MEDS: K and/or MAG REPLACEMENT MC SCH (08:00)
[2017-12-26] MEDS: midodrine tablet 2.5 MG TABLET PO SCH ×2 (09:12→16:13)
[2017-12-26 11:00] VITALS: BP 111/56
[2017-12-26] MEDS: ipratropium/albuterol 3ml nebule NEB SCH ×4 (11:00→22:34)
[2017-12-26 15:00] VITALS: BP 111/56
[2017-12-26 19:00] VITALS: BP 103/49
[2017-12-26 23:00] VITALS: BP 110/47
[2017-12-27 03:00] VITALS: BP 101/45
[2017-12-27] MEDS: ipratropium/albuterol 3ml nebule NEB SCH ×4 (03:10→14:59)
[2017-12-27 06:00] VITALS: BP 101/45
[2017-12-27 06:53] LABS: BASOPHILS % (AUTO) 0.2 % (0-1); EOSINOPHILS # (AUTO) 0.4 X10'3 (0-0.9); EOSINOPHILS % (AUTO) 5.7 % (0-6); HEMATOCRIT 25.7 % (35.0-45.0); HEMOGLOBIN 8.9 g/dl (12.0-16.0); LYMPHOCYTES # (AUTO) 1.1 X10'3 (1.1-4.8); LYMPHOCYTES % (AUTO) 18.6 % (21-51); MEAN CORPUSCULAR HEMOGLOBIN 33.2 PG (27.0-31.0); MEAN CORPUSCULAR HGB CONC 34.5 % (33.0-36.5); MEAN CORPUSCULAR VOLUME 96.4 FL (78-98); MEAN PLATELET VOLUME 6.3 FL (7.4-10.4); MONOCYTES # (AUTO) 0.8 X10'3 (0-0.9); MONOCYTES % (AUTO) 13.3 % (2-12); NEUTROPHILS # (AUTO) 3.8 X10'3 (1.8-7.7); NEUTROPHILS % (AUTO) 62.2 % (42-75); PLATELET COUNT 167 X10'3 (140-440); RED BLOOD COUNT 2.67 X10'6 (4.20-5.60); WHITE BLOOD COUNT 6.2 X10'3 (4.5-11.0)
[2017-12-27 07:10] LABS: ALBUMIN 1.9 G/DL (3.4-5.0); ANION GAP 7 (8-16); BLOOD UREA NITROGEN 21 MG/DL (7-18); BUN/CREATININE RATIO 26.9 (6.6-38.0); CALCIUM 8.4 MG/DL (8.5-10.1); CHLORIDE 104 MMOL/L (99-107); CREATININE 0.78 MG/DL (0.40-0.90); GLUCOSE 81 MG/DL (70-104); POTASSIUM 3.7 MMOL/L (3.5-5.1); SODIUM 139 MMOL/L (135-145); TOTAL CARBON DIOXIDE 28.1 MMOL/L (24-32); eGFR 71 ML/MIN
[2017-12-27 07:54] LABS: MAGNESIUM 1.9 MG/DL (1.5-2.4)
[2017-12-27] MEDS: spironolactone 25 MG tablet PO SCH (08:00)
[2017-12-27] MEDS: K and/or MAG REPLACEMENT MC SCH (08:00)
[2017-12-27] MEDS: furosemide 40mg tablet PO SCH (08:00)
[2017-12-27] MEDS ORDERED: methylPREDNISolone sod succ/PF 40mg inj. IV ONE (08:05)
[2017-12-27] MEDS: rifaximin 550mg tablet PO SCH (08:46)
[2017-12-27] MEDS: lactobacillus rhamnosus 10,000 MMU CELLS/CAPSULE PO SCH (08:46)
[2017-12-27] MEDS: lactulose 20gm/30ml cup PO SCH ×2 (08:46→13:00)
[2017-12-27] MEDS: Ursodiol 300mg capsule PO SCH ×2 (08:47→13:15)
[2017-12-27] MEDS: midodrine tablet 2.5 MG TABLET PO SCH ×2 (08:48)
[2017-12-27] MEDS: levoTHYROXINE 75mcg tablet PO SCH (08:48)
[2017-12-27] MEDS: LACTOSE-FREE FOOD 237ML (BOOST) PO SCH ×2 (08:55→13:17)
[2017-12-27] MEDS ORDERED: ALBU8.5H8 INH (11:48)
== END 2017-12-27 15:30 | disposition home or self-care (01) | DRG 291 ==
LOC: ER 11:32 → ED HOLD 16:49 → EDBEDREQDT 12-22 06:39 → EDBEDREQ 12-22 06:39 → EDBEDREQTM 12-22 06:39 → PCU 3S 12-22 07:29 → UNDODISIN 12-23 13:30
PROVIDERS: ADMIT Internal Medicine; ATTEND Family Medicine
DX: I11.0 Hypertensive heart disease with heart failure (principal); E43 Unspecified severe protein-calorie malnutrition; K72.90 Hepatic failure, unspecified without coma; D64.9 Anemia, unspecified; K74.3 Primary biliary cirrhosis; M34.9 Systemic sclerosis, unspecified; I50.33 Acute on chronic diastolic (congestive) heart failure; E03.9 Hypothyroidism, unspecified; I73.00 Raynaud's syndrome without gangrene; Z90.710 Acquired absence of both cervix and uterus; Z79.899 Other long term (current) drug therapy; Z80.6 Family history of leukemia; Z83.3 Family history of diabetes mellitus
CPT/HCPCS: 36415; 70450; 71045; 80048; 80053; 81001; 82140; 83605; 83735; 83880; 84132; 84443; 84484; 85025; 85027; 85610; 85730; 87040; 93005; 94640; 94760; 96374; 97110; 97116; 97162; 97530; 99285; A4315; A6213; A6250; A6257; J1940; J2920

== ENCOUNTER 2018-07-06 15:26 | Inpatient (IN) | payer MEDICARE, BC ==
[~2018-07-06] VITALS: Ht 157.5 cm; Wt 64.2 kg
[~2018-07-06 15:26] MED LIST changes: +ALBU8.5H8 INH; +FERR325T32 PO; -SPIR25TA3 PO; +SPIR25TA5 PO; -iron PO
[2018-07-06] MEDS ORDERED: aspirin 81mg tab.chew PO ONE (15:45)
[2018-07-06 16:13] LABS: BASOPHILS % (AUTO) 0.1 % (0-1); EOSINOPHILS # (AUTO) 0.2 X10'3 (0-0.9); EOSINOPHILS % (AUTO) 1.4 % (0-6); HEMATOCRIT 33.1 % (35.0-45.0); HEMOGLOBIN 11.1 g/dl (12.0-16.0); LYMPHOCYTES # (AUTO) 0.7 X10'3 (1.1-4.8); MEAN CORPUSCULAR HEMOGLOBIN 30.6 PG (27.0-31.0); MEAN CORPUSCULAR HGB CONC 33.5 % (33.0-36.5); MEAN CORPUSCULAR VOLUME 91.3 FL (78-98); MEAN PLATELET VOLUME 6.4 FL (7.4-10.4); MONOCYTES # (AUTO) 1.2 X10'3 (0-0.9); MONOCYTES % (AUTO) 9.5 % (2-12); NEUTROPHILS # (AUTO) 10.2 X10'3 (1.8-7.7); PLATELET COUNT 109 X10'3 (140-440); RED BLOOD COUNT 3.62 X10'6 (4.20-5.60); RED CELL DISTRIBUTION WIDTH 17.4 % (11.5-14.5); WHITE BLOOD COUNT 12.3 X10'3 (4.5-11.0)
[2018-07-06 16:28] LABS: ALANINE AMINOTRANSFERASE 37 U/L (12-78); ALBUMIN 1.3 G/DL (3.4-5.0); ALKALINE PHOSPHATASE 234 IU/L (46-116); ANION GAP 7 (8-16); ASPARTATE AMINO TRANSFERASE 52 U/L (10-37); BILIRUBIN,TOTAL 4.2 MG/DL (0.1-1.0); BLOOD UREA NITROGEN 31 MG/DL (7-18); BUN/CREATININE RATIO 20.7 (6.6-38.0); CALCIUM 8.7 MG/DL (8.5-10.1); CHLORIDE 88 MMOL/L (99-107); GLUCOSE 105 MG/DL (70-104); POTASSIUM 5.3 MMOL/L (3.5-5.1); SODIUM 121 MMOL/L (135-145); TOTAL CARBON DIOXIDE 26.5 MMOL/L (24-32); eGFR 34 ML/MIN
[2018-07-06 16:32] LABS: ALBUMIN/GLOBULIN RATIO 0.3 (1.1-1.5); TOTAL PROTEIN 5.1 G/DL (6.4-8.2)
[2018-07-06 16:35] LABS: MAGNESIUM 2.6 MG/DL (1.5-2.4)
[2018-07-06 16:48] LABS: TOTAL CELLS COUNTED 100
[2018-07-06 16:49] LABS: ANISOCYTOSIS 1+; PLATELET ESTIMATE DECREASED; POIKILOCYTOSIS FEW
[2018-07-06] MEDS ORDERED: normal saline 1000ML IV soln IVB ONE (17:35)
[2018-07-06] MEDS ORDERED: SPIR50TA5 PO (17:41)
[2018-07-06] MEDS ORDERED: MAGN296S50 PO (17:44)
[2018-07-06] MEDS ORDERED: ondansetron/PF 4mg/2ml inj IV PRN (17:55)
[2018-07-06] MEDS ORDERED: acetaminophen 325mg tablet PO PRN ×2 (17:55)
[2018-07-06] MEDS ORDERED: magnesium hydroxide 30ml (MOM) UD suspension PO PRN (17:55)
[2018-07-06] MEDS ORDERED: mag hydrox/Alum hydrox/simeth 30ml oral suspension PO PRN (17:55)
[2018-07-06] MEDS: CefTRIAXone/D5W-Rocephin 1gm 50 ML IV SCH (18:46)
[2018-07-06] MEDS: normal saline 1000ml 1,000 ML IV SCH (18:47)
[2018-07-06 19:06] LABS: CLARITY,URINE SLIGHTLY CLOUDY (Clear); COLOR,URINE YELLOW (Yellow); GLUCOSE, URINE NEGATIVE (Neg); KETONES,URINE NEGATIVE (Neg); LEUKOCYTE ESTERASE ,URINE SMALL (Neg); NITRITES, URINE NEGATIVE (Neg); OCCULT BLOOD,URINE TRACE-INTACT (Neg); PROTEIN,URINE NEGATIVE (Neg); UROBILINOGEN,URINE 0.2 E.U/dL (0.2-1.0)
[2018-07-06 19:07] LABS: UA COLLECTION TYPE FOLEY CATH
[2018-07-06 19:20] VITALS: BP 110/52
[2018-07-06 19:20] LABS: BACTERIA,URINE 4+ /HPF (Neg); MUCUS STRANDS FEW /LPF (Neg); RBC,URINE 0-2 /HPF (0-2); SQUAMOUS EPITHELIAL CELL,UR FEW /LPF (FEW); WBC,URINE 20-30 /HPF (0-4)
[2018-07-06 19:21] LABS: WBC CLUMPS,URINE MODERATE /HPF (NEGATIVE)
[2018-07-06] MEDS ORDERED: albuterol 2.5 MG/3 ML nebule NEB PRN (19:30)
[2018-07-06] MEDS ORDERED: pantoprazole 40mg Tablet.DR PO PRN (19:30)
[2018-07-06] MEDS: rifaximin 550mg tablet PO SCH (20:00)
[2018-07-06] MEDS ORDERED: vancomycin/NS 1 GM ADD-VANTAGE 250 ML IV SCH (20:00)
[2018-07-06] MEDS ORDERED: lactulose 20gm/30ml cup PO SCH (21:00)
[2018-07-06] MEDS ORDERED: magnesium citrate 296ml oral solution PO SCH (21:00)
[2018-07-06] MEDS: lactulose 20gm/30ml cup PO SCH (21:10)
[2018-07-06] MEDS: vancomycin/NS 1 GM ADD-VANTAGE 250 ML IV SCH (21:48)
[2018-07-06 23:00] VITALS: BP 98/54
[2018-07-07 03:00] VITALS: BP 99/51
[2018-07-07] MEDS: normal saline 1000ml 1,000 ML IV SCH ×3 (03:52→22:17)
[2018-07-07 06:00] VITALS: BP 99/63
[2018-07-07] MEDS: Ursodiol 300mg capsule PO SCH ×3 (08:00→18:00)
[2018-07-07] MEDS: rifaximin 550mg tablet PO SCH ×2 (08:00→20:00)
[2018-07-07] MEDS: levoTHYROXINE 125mcg tablet PO SCH (08:00)
[2018-07-07] MEDS: CefTRIAXone/D5W-Rocephin 1gm 50 ML IV SCH (08:50)
[2018-07-07] MEDS: lactulose 20gm/30ml cup PO SCH ×3 (09:16→22:17)
[2018-07-07 11:00] VITALS: BP 105/84
[2018-07-07 13:34] LABS: ALANINE AMINOTRANSFERASE 39 U/L (12-78); ALBUMIN 1.2 G/DL (3.4-5.0); ALKALINE PHOSPHATASE 215 IU/L (46-116); ANION GAP 10 (8-16); ASPARTATE AMINO TRANSFERASE 60 U/L (10-37); BILIRUBIN,TOTAL 3.8 MG/DL (0.1-1.0); BLOOD UREA NITROGEN 29 MG/DL (7-18); BUN/CREATININE RATIO 23.6 (6.6-38.0); CALCIUM 7.8 MG/DL (8.5-10.1); CHLORIDE 92 MMOL/L (99-107); CREATININE 1.23 MG/DL (0.40-0.90); GLUCOSE 98 MG/DL (70-104); SODIUM 126 MMOL/L (135-145); TOTAL CARBON DIOXIDE 23.8 MMOL/L (24-32); eGFR 42 ML/MIN
[2018-07-07 13:50] LABS: ALBUMIN/GLOBULIN RATIO 0.4 (1.1-1.5); INR 1.4 INR; PARTIAL THROMBOPLASTIN TIME 37 SECONDS (22-32); PHOSPHORUS 3.1 MG/DL (2.3-4.5); POTASSIUM 4.7 MMOL/L (3.5-5.1); PROTHROMBIN TIME 14.1 SECONDS (9.0-12.0); TOTAL PROTEIN 4.6 G/DL (6.4-8.2)
[2018-07-07 14:11] LABS: HEMATOCRIT 30.9 % (35.0-45.0); HEMOGLOBIN 10.6 g/dl (12.0-16.0); MEAN CORPUSCULAR HEMOGLOBIN 31.3 PG (27.0-31.0); MEAN CORPUSCULAR HGB CONC 34.4 % (33.0-36.5); MEAN CORPUSCULAR VOLUME 91.2 FL (78-98); RED BLOOD COUNT 3.39 X10'6 (4.20-5.60); WHITE BLOOD COUNT 9.8 X10'3 (4.5-11.0)
[2018-07-07 14:12] LABS: BASOPHILS # (AUTO) 0.1 X10'3 (0-0.2); BASOPHILS % (AUTO) 0.6 % (0-1); EOSINOPHILS # (AUTO) 0.1 X10'3 (0-0.9); EOSINOPHILS % (AUTO) 1.1 % (0-6); LYMPHOCYTES # (AUTO) 0.7 X10'3 (1.1-4.8); LYMPHOCYTES % (AUTO) 7.3 % (21-51); MEAN PLATELET VOLUME 7.2 FL (7.4-10.4); MONOCYTES # (AUTO) 0.8 X10'3 (0-0.9); MONOCYTES % (AUTO) 8.6 % (2-12); NEUTROPHILS # (AUTO) 8.1 X10'3 (1.8-7.7); NEUTROPHILS % (AUTO) 82.4 % (42-75); PLATELET COUNT 110 X10'3 (140-440); RED CELL DISTRIBUTION WIDTH 16.5 % (11.5-14.5)
[2018-07-07 15:00] VITALS: BP 88/57
[2018-07-07 19:00] VITALS: BP 103/55
[2018-07-07] MEDS: lactobacillus rhamnosus 10,000 MMU CELLS/CAPSULE PO SCH (20:00)
[2018-07-07] MEDS: vancomycin/NS 1 GM ADD-VANTAGE 250 ML IV SCH (22:17)
[2018-07-07 23:00] VITALS: BP 117/54
[2018-07-08 03:00] VITALS: BP 116/57
[2018-07-08 04:34] LABS: ALANINE AMINOTRANSFERASE 38 U/L (12-78); ALBUMIN 1.1 G/DL (3.4-5.0); ALBUMIN/GLOBULIN RATIO 0.3 (1.1-1.5); ALKALINE PHOSPHATASE 197 IU/L (46-116); ANION GAP 9 (8-16); ASPARTATE AMINO TRANSFERASE 56 U/L (10-37); BILIRUBIN,TOTAL 3.5 MG/DL (0.1-1.0); BLOOD UREA NITROGEN 27 MG/DL (7-18); BUN/CREATININE RATIO 23.3 (6.6-38.0); CALCIUM 7.7 MG/DL (8.5-10.1); CHLORIDE 95 MMOL/L (99-107); CREATININE 1.16 MG/DL (0.40-0.90); GLUCOSE 85 MG/DL (70-104); POTASSIUM 4.4 MMOL/L (3.5-5.1); SODIUM 128 MMOL/L (135-145); TOTAL PROTEIN 4.4 G/DL (6.4-8.2); eGFR 45 ML/MIN
[2018-07-08 04:41] LABS: INR 1.4 INR; PARTIAL THROMBOPLASTIN TIME 39 SECONDS (22-32); PROTHROMBIN TIME 14.3 SECONDS (9.0-12.0)
[2018-07-08 05:17] LABS: BASOPHILS % (AUTO) 0 % (0-1); EOSINOPHILS # (AUTO) 0.3 X10'3 (0-0.9); EOSINOPHILS % (AUTO) 2.7 % (0-6); HEMATOCRIT 28.7 % (35.0-45.0); HEMOGLOBIN 9.8 g/dl (12.0-16.0); LYMPHOCYTES % (AUTO) 9.7 % (21-51); MEAN CORPUSCULAR HEMOGLOBIN 31.1 PG (27.0-31.0); MEAN CORPUSCULAR VOLUME 91.4 FL (78-98); MEAN PLATELET VOLUME 7.5 FL (7.4-10.4); MONOCYTES # (AUTO) 0.8 X10'3 (0-0.9); MONOCYTES % (AUTO) 8.3 % (2-12); NEUTROPHILS # (AUTO) 7.7 X10'3 (1.8-7.7); NEUTROPHILS % (AUTO) 79.3 % (42-75); PLATELET COUNT 104 X10'3 (140-440); RED BLOOD COUNT 3.14 X10'6 (4.20-5.60); RED CELL DISTRIBUTION WIDTH 17.6 % (11.5-14.5); WHITE BLOOD COUNT 9.8 X10'3 (4.5-11.0)
[2018-07-08 06:00] VITALS: BP 112/52
[2018-07-08] MEDS: lactulose 20gm/30ml cup PO SCH ×2 (08:00→12:47)
[2018-07-08] MEDS: lactobacillus rhamnosus 10,000 MMU CELLS/CAPSULE PO SCH (08:00)
[2018-07-08] MEDS: Ursodiol 300mg capsule PO SCH ×2 (08:00→12:46)
[2018-07-08] MEDS: levoTHYROXINE 125mcg tablet PO SCH (08:00)
[2018-07-08] MEDS: CefTRIAXone/D5W-Rocephin 1gm 50 ML IV SCH (08:00)
[2018-07-08] MEDS: rifaximin 550mg tablet PO SCH (08:00)
[2018-07-08] MEDS: normal saline 1000ml 1,000 ML IV SCH (09:52)
[2018-07-08 11:00] VITALS: BP 90/40
[2018-07-08 15:00] VITALS: BP 96/45
[2018-07-08] MEDS ORDERED: morphine 10mg/ml inj. IV PRN (16:25)
[2018-07-08 19:00] VITALS: BP 101/44
[2018-07-09 06:00] VITALS: BP 85/39
[2018-07-09] MEDS: morphine 10mg/0.5ml (conc. morphine) oral syringe PO PRN (10:29)
[2018-07-09 15:00] VITALS: BP 90/42
[2018-07-09 19:00] VITALS: BP 88/39
[2018-07-09] MEDS ORDERED: VANCOMYCIN LEVEL IV ONE (19:30)
[2018-07-10] MEDS: morphine 10mg/0.5ml (conc. morphine) oral syringe PO PRN (06:06)
[2018-07-10 07:00] VITALS: BP 71/31
[2018-07-10 19:00] VITALS: BP 64/25
[2018-07-11 11:00] VITALS: BP 62/22
[2018-07-11] MEDS: morphine 10mg/0.5ml (conc. morphine) oral syringe PO PRN (14:18)
[2018-07-11 20:00] VITALS: BP 56/23
[2018-07-12 07:00] VITALS: BP 43/20
[2018-07-12] MEDS: morphine 10mg/0.5ml (conc. morphine) oral syringe PO PRN (10:01)
== END 2018-07-12 17:40 | disposition expired | DRG 871 ==
LOC: ER 15:26 → ED HOLD 17:52 → PCU 3S 19:20
PROVIDERS: ADMIT Family Medicine; ATTEND Internal Medicine
DX: A41.9 Sepsis, unspecified organism (principal); E43 Unspecified severe protein-calorie malnutrition; E87.1 Hypo-osmolality and hyponatremia; I13.0 Hypertensive heart and chronic kidney disease with heart failure and stage 1 through stage 4 chronic kidney disease, or unspecified chronic kidney disease; N17.9 Acute kidney failure, unspecified; N39.0 Urinary tract infection, site not specified; K72.90 Hepatic failure, unspecified without coma; E03.9 Hypothyroidism, unspecified; E83.41 Hypermagnesemia; E86.0 Dehydration; E87.5 Hyperkalemia; B95.2 Enterococcus as the cause of diseases classified elsewhere; F41.9 Anxiety disorder, unspecified; I50.9 Heart failure, unspecified; I73.00 Raynaud's syndrome without gangrene; K57.90 Diverticulosis of intestine, part unspecified, without perforation or abscess without bleeding; K74.60 Unspecified cirrhosis of liver; N18.9 Chronic kidney disease, unspecified; M10.9 Gout, unspecified; Z51.5 Encounter for palliative care; Z66 Do not resuscitate; Z90.710 Acquired absence of both cervix and uterus; Z90.49 Acquired absence of other specified parts of digestive tract; Z79.899 Other long term (current) drug therapy; Z82.49 Family history of ischemic heart disease and other diseases of the circulatory system; Z80.6 Family history of leukemia; Z68.25 Body mass index [BMI] 25.0-25.9, adult
CPT/HCPCS: 36415; 70450; 71045; 80053; 81001; 82140; 83605; 83735; 83880; 84100; 84145; 84443; 84484; 85025; 85610; 85730; 87040; 87070; 87077; 87088; 87186; 93005; 97161; 97530; 99291; A4315; A6250; J0696; J3370; J7030